=== PATIENT | female | born 1960 | race Two or more races ===

== ENCOUNTER 2016-07-19 17:24 | Inpatient (IN) | payer OTHER ==
[~2016-07-19] VITALS: Ht 167.6 cm; Wt 114.6 kg
[2016-07-19] MEDS ORDERED: ONDANSETRON HCL 4 MG/2 ML VIAL IV ONE (17:45)
[2016-07-19 18:14] LABS: Basophils # (auto) 0.1 uL; Basophils % (auto) 0.4 % (0.0-2.0); Eosinophils # (auto) 0.1 uL; Eosinophils % (auto) 0.4 % (0.0-7.0); Hematocrit 43.3 % (36.0-46.0); Hemoglobin 14.7 g/dL (12.2-16.2); Lymphocytes # (auto) 1.8 uL; Lymphocytes % (auto) 11.4 % (10.0-50.0); Mean Corpuscular Hemoglobin 29.5 pg (28.0-32.0); Mean Corpuscular Hgb Conc. 33.9 g/dL (32.0-36.0); Mean Corpuscular Volume 86.9 fL (80.0-100.0); Mean Platelet Volume 9.3 fL (7.4-10.4); Monocytes # (auto) 0.5 uL; Neutrophils # (auto) 13.4 uL; Neutrophils % (auto) 84.8 % (37.0-80.0); Platelet Count (auto) 244 10^3/uL (140-450); Red Cell Distribution Width 13.9 % (11.6-16.0); White Blood Cell 15.8 10^3/uL (4.4-10.8)
[2016-07-19 18:26] LABS: Albumin 3.3 g/dL (3.4-5.0); Alkaline Phosphatase 91 U/L (45-117); Anion Gap 14 (5-15); Aspartate Aminotransferase 19 U/L (15-37); BUN/Creatinine Ratio 12.9; Bilirubin, Total 0.3 mg/dL (0.2-1.0); Blood Urea Nitrogen 15 mg/dL (7-18); Calcium 8.8 mg/dL (8.5-10.1); Carbon Dioxide 24 mmol/L (21-32); Chloride 106 mmol/L (98-107); GFR African American 62 mL/min; GFR Non-African American 51 mL/min; Glucose 145 mg/dL (74-106); Magnesium 2.2 mg/dL (1.6-2.6); Potassium 3.8 mmol/L (3.5-5.1); Sodium 144 mmol/L (136-145); Total Protein 7.1 g/dL (6.4-8.2)
[2016-07-19] MEDS ORDERED: SODIUM CHLORIDE 0.9% 1,000 ML IV ONE ×2 (19:25→21:15)
[2016-07-19] MEDS ORDERED: PROCHLORPERAZINE EDISYLATE 5 MG/ML 2ML VIAL IV ONE (19:30)
[2016-07-19 19:47] LABS: Amylase 39 U/L (25-115)
[2016-07-19] MEDS ORDERED: LACTULOSE 20Gm/30ML SOLN PO PRN (21:15)
[2016-07-19] MEDS ORDERED: MORPHINE SULFATE 4 MG/ML SYRG IV PRN (21:15)
[2016-07-19] MEDS ORDERED: PROCHLORPERAZINE EDISYLATE 5 MG/ML 2ML VIAL IV PRN (21:15)
[2016-07-19] MEDS ORDERED: LEVOFLOXACIN 500MG 100 ML IV ONE (21:15)
[2016-07-19] MEDS ORDERED: AMITRIPTYLINE HCL 25 MG TAB PO SCH (22:00)
[2016-07-19 23:00] VITALS: BP 140/67
[2016-07-19 23:30] VITALS: BP 140/67
[2016-07-20] MEDS ORDERED: FURO40TA PO (00:21)
[2016-07-20] MEDS ORDERED: LISI-646 PO (00:21)
[2016-07-20] MEDS ORDERED: CITA10SO4 PO (00:21)
[2016-07-20] MEDS ORDERED: ESTR1TAB36 PO (00:21)
[2016-07-20] MEDS ORDERED: NORT25CA PO (00:21)
[2016-07-20] MEDS ORDERED: ATEN-60 PO (00:21)
[2016-07-20 05:00] VITALS: BP 112/55
[2016-07-20 06:36] LABS: Basophils # (auto) 0 uL; Basophils % (auto) 0.3 % (0.0-2.0); Eosinophils # (auto) 0 uL; Eosinophils % (auto) 0.4 % (0.0-7.0); Hematocrit 36.4 % (36.0-46.0); Lymphocytes # (auto) 2.9 uL; Mean Corpuscular Volume 87.8 fL (80.0-100.0); Mean Platelet Volume 9.2 fL (7.4-10.4); Monocytes # (auto) 0.6 uL; Monocytes % (auto) 4.6 % (0.0-12.0); Neutrophils # (auto) 9.6 uL; Neutrophils % (auto) 72.7 % (37.0-80.0); Platelet Count (auto) 270 10^3/uL (140-450); Red Cell Distribution Width 14.3 % (11.6-16.0); White Blood Cell 13.2 10^3/uL (4.4-10.8)
[2016-07-20] MEDS ORDERED: ACETAMINOPHEN 325 MG TAB PO PRN (07:15)
[2016-07-20 07:18] LABS: Albumin 2.7 g/dL (3.4-5.0); BUN/Creatinine Ratio 12.5; Bilirubin, Total 0.3 mg/dL (0.2-1.0); Potassium 3.6 mmol/L (3.5-5.1); Total Protein 5.8 g/dL (6.4-8.2)
[2016-07-20 08:00] VITALS: BP 124/56
[2016-07-20 09:01] VITALS: BP 124/56
[2016-07-20] MEDS ORDERED: LISINOPRIL 20 MG TAB PO SCH (10:00)
[2016-07-20] MEDS ORDERED: ATENOLOL 25 MG TAB PO SCH (10:00)
[2016-07-20] MEDS ORDERED: CITALOPRAM HYDROBR 20 MG TAB PO SCH (10:00)
[2016-07-20] MEDS ORDERED: FUROSEMIDE 20 MG TAB PO SCH (10:00)
[2016-07-20] MEDS ORDERED: PANTOPRAZOLE SODIUM 40 MG/10 ML VIAL IV SCH (10:00)
[2016-07-20] MEDS ORDERED: ENOXAPARIN SOD 40 MG/0.4 ML SYRINGE SC SCH (10:00)
[2016-07-20 10:48] LABS: Urine Bilirubin Negative (Negative); Urine Blood Negative /uL (Negative); Urine Color Yellow (Yellow); Urine Glucose Normal (Normal); Urine Ketone Negative (Negative); Urine Mucus FEW (None Seen); Urine Nitrite Negative (Negative); Urine RBC <1 /hpf (0 - 4); Urine Squamous Epithelial Cell FEW /hpf (<5); Urine Urobilinogen Normal (Negative)
[2016-07-20] MEDS ORDERED: ASPirin 81 mg TAB PO ONE (12:30)
[2016-07-20 12:36] VITALS: BP 136/65
[2016-07-20] MEDS ORDERED: IBUPROFEN 400 MG TAB PO PRN (13:45)
[2016-07-20 15:50] VITALS: BP 136/65
[2016-07-20 16:34] VITALS: BP 133/66
[2016-07-20] MEDS ORDERED: LEVOFLOXACIN 500MG 100 ML IV SCH (21:00)
[2016-07-20] MEDS ORDERED: ATORVASTATIN 20 MG TAB PO SCH (22:00)
[2016-07-21] MEDS ORDERED: ASPirin 81 mg TAB PO SCH (10:00)
== END 2016-07-20 19:00 | disposition short-term general hospital (02) | DRG 102 ==
LOC: ER 17:29 → TELE 17:30 → TELE-WESTW 21:56
PROVIDERS: ADMIT Family Medicine; ATTEND Internal Medicine
DX: R51 Headache (principal); N17.0 Acute kidney failure with tubular necrosis; Z68.41 Body mass index [BMI] 40.0-44.9, adult; E86.0 Dehydration; D72.829 Elevated white blood cell count, unspecified; F32.9 Major depressive disorder, single episode, unspecified; I10 Essential (primary) hypertension; M79.7 Fibromyalgia; H53.9 Unspecified visual disturbance; M54.9 Dorsalgia, unspecified; Z80.1 Family history of malignant neoplasm of trachea, bronchus and lung; Z82.49 Family history of ischemic heart disease and other diseases of the circulatory system; Z83.3 Family history of diabetes mellitus; Z90.49 Acquired absence of other specified parts of digestive tract; Z90.710 Acquired absence of both cervix and uterus; Z98.49 Cataract extraction status, unspecified eye; Z88.5 Allergy status to narcotic agent; E66.9 Obesity, unspecified
CPT/HCPCS: 36415; 70450; 74176; 80053; 81001; 82150; 83690; 83735; 84484; 85025; 87086; 93005; 94761; 96361; 96365; 96375; C9113; J1956; J2405

== ENCOUNTER 2021-06-10 10:31 | Emergency (ER) | payer OTHER ==
[~2021-06-10] VITALS: Ht 170.2 cm; Wt 118.4 kg
[~2021-06-10 10:31] MED LIST: ATEN-60 PO; CITA10SO4 PO; ESTR1TAB6 PO; FURO1TAB31 PO; LISI20TA28 PO; NORT25CA PO
[2021-06-10 12:10] LABS: Basophils # (auto) 0.1 10 ^3/uL (0-0.2); Basophils % (auto) 1.2 % (0.0-2.0); Eosinophils # (auto) 0.1 10 ^3/uL (0-0.8); Eosinophils % (auto) 1.3 % (0.0-7.0); Hematocrit 42.9 % (36.0-46.0); Hemoglobin 14.2 g/dL (12.2-16.2); Lymphocytes # (auto) 1.3 10 ^3/uL (0.4-5.4); Lymphocytes % (auto) 19.6 % (10.0-50.0); Mean Corpuscular Hgb Conc. 33.1 g/dL (32.0-36.0); Mean Corpuscular Volume 87.5 fL (80.0-100.0); Monocytes # (auto) 0.6 10 ^3/uL (0-1.3); Monocytes % (auto) 8.8 % (0.0-12.0); Neutrophils # (auto) 4.4 10 ^3/uL (1.6-8.6); Neutrophils % (auto) 69.1 % (37.0-80.0); Nucleated Red Blood Cells % 0.1 %; Red Cell Distribution Width 14.5 % (11.8-14.3); White Blood Cell 6.4 10^3/uL (4.4-10.8)
[2021-06-10 12:18] VITALS: BP 153/71
[2021-06-10 12:26] LABS: Potassium 3.5 mmol/L (3.5-5.1)
[2021-06-10 12:37] LABS: Albumin 3.2 g/dL (3.4-5.0); BUN/Creatinine Ratio 11.5; Bilirubin, Total 0.3 mg/dL (0.2-1.0); CRP High Sensitivity 5.92 mg/dL (< 0.3)
[2021-06-10] MEDS ORDERED: AZIT1POW PO (15:21)
[2021-06-10] MEDS ORDERED: METH4PAK PO (15:21)
[2021-06-10] MEDS ORDERED: ZINC220C8 PO (15:21)
== END 2021-06-10 15:30 | disposition home or self-care (01) ==
LOC: ER 10:31
DX: R05.9 Cough, unspecified (principal); I10 Essential (primary) hypertension; Z90.89 Acquired absence of other organs; Z88.1 Allergy status to other antibiotic agents; Z88.2 Allergy status to sulfonamides; Z88.8 Allergy status to other drugs, medicaments and biological substances; Z20.822 Contact with and (suspected) exposure to COVID-19; Z88.0 Allergy status to penicillin
CPT/HCPCS: 36415; 71046; 80053; 82728; 85025; 85379; 86141; 87426; 93005

== ENCOUNTER → 2021-07-02 | Outpatient (CLI) | payer OTHER ==
[~2021-07-02] MED LIST changes: +AZIT1POW PO; +METH4PAK PO; +ZINC220C8 PO
== END | disposition home or self-care (01) ==
LOC: US 09:31
PROVIDERS: ATTEND Internal Medicine
DX: N63.41 Unspecified lump in right breast, subareolar (principal); N60.81 Other benign mammary dysplasias of right breast; Z87.891 Personal history of nicotine dependence; Z98.51 Tubal ligation status; Z90.710 Acquired absence of both cervix and uterus; Z98.891 History of uterine scar from previous surgery; Z82.49 Family history of ischemic heart disease and other diseases of the circulatory system; Z83.3 Family history of diabetes mellitus; Z80.1 Family history of malignant neoplasm of trachea, bronchus and lung
CPT/HCPCS: 19083; 76642; 76942

== ENCOUNTER 2022-03-24 16:33 | Emergency (ER) | payer OTHER ==
[~2022-03-24] VITALS: Ht 167.6 cm; Wt 119.9 kg
[2022-03-24 16:48] VITALS: BP 145/71
[2022-03-24] MEDS ORDERED: BACL10TA PO (20:07)
== END 2022-03-24 20:19 | disposition home or self-care (01) ==
LOC: ER 16:33
DX: S93.402A Sprain of unspecified ligament of left ankle, initial encounter (principal); S83.92XA Sprain of unspecified site of left knee, initial encounter; S09.90XA Unspecified injury of head, initial encounter; F07.81 Postconcussional syndrome; I10 Essential (primary) hypertension; E03.9 Hypothyroidism, unspecified; Z90.49 Acquired absence of other specified parts of digestive tract; Z90.710 Acquired absence of both cervix and uterus; Z79.2 Long term (current) use of antibiotics; Z79.899 Other long term (current) drug therapy; Z88.1 Allergy status to other antibiotic agents; Z88.8 Allergy status to other drugs, medicaments and biological substances; W01.0XXA Fall on same level from slipping, tripping and stumbling without subsequent striking against object, initial encounter; Y93.89 Activity, other specified; Y92.89 Other specified places as the place of occurrence of the external cause; Y99.8 Other external cause status
CPT/HCPCS: 70450; 73562; 73610

== ENCOUNTER → 2022-06-25 | Outpatient (CLI) | payer OTHER ==
[~2022-06-25] MED LIST changes: +BACL10TA PO
[2022-06-25 08:31] LABS: Basophils # (auto) 0.1 10 ^3/uL (0-0.2); Basophils % (auto) 1.1 % (0.0-2.0); Eosinophils # (auto) 0.2 10 ^3/uL (0-0.8); Eosinophils % (auto) 2.9 % (0.0-7.0); Hematocrit 45.2 % (36.0-46.0); Hemoglobin 14.9 g/dL (12.2-16.2); Lymphocytes # (auto) 2.8 10 ^3/uL (0.4-5.4); Lymphocytes % (auto) 33.9 % (10.0-50.0); Mean Corpuscular Hemoglobin 29.4 pg (28.0-32.0); Mean Corpuscular Hgb Conc. 32.9 g/dL (32.0-36.0); Mean Corpuscular Volume 89.3 fL (80.0-100.0); Monocytes # (auto) 0.5 10 ^3/uL (0-1.3); Monocytes % (auto) 6.3 % (0.0-12.0); Neutrophils # (auto) 4.6 10 ^3/uL (1.6-8.6); Neutrophils % (auto) 55.8 % (37.0-80.0); Nucleated Red Blood Cells % 0.1 %; Red Blood Cells 5.07 10^6/uL (4.0-5.20); Red Cell Distribution Width 14.3 % (11.8-14.3); White Blood Cell 8.2 10^3/uL (4.4-10.8)
[2022-06-25 09:13] LABS: Albumin 3.4 g/dL (3.4-5.0); Calcium 9.1 mg/dL (8.5-10.1); Potassium 4.1 mmol/L (3.5-5.1)
[2022-06-25 09:19] LABS: BUN/Creatinine Ratio 15.4; Bilirubin, Total 0.4 mg/dL (0.2-1.0); Total Protein 6.9 g/dL (6.4-8.2)
[2022-06-25 09:51] LABS: Free T3 2.79 pg/mL (2.3-4.2); Free T4 (Free Thyroxine) 1.18 ng/dL (0.89-1.76)
== END | disposition home or self-care (01) ==
LOC: LAB 07:55
PROVIDERS: ATTEND Internal Medicine
DX: Z12.11 Encounter for screening for malignant neoplasm of colon (principal); Z00.00 Encounter for general adult medical examination without abnormal findings; I10 Essential (primary) hypertension; M79.7 Fibromyalgia; F32.9 Major depressive disorder, single episode, unspecified
CPT/HCPCS: 36415; 80053; 80061; 82306; 84439; 84481; 85025; 86038

== ENCOUNTER → 2022-10-21 | Outpatient (CLI) | payer OTHER ==
[~2022-10-21] MED LIST changes: -LISI20TA28 PO; +LISI20TA56 PO
== END | disposition home or self-care (01) ==
LOC: LAB 10:23
PROVIDERS: ATTEND Student in an Organized Health Care Education/Training Program
DX: R53.83 Other fatigue (principal); M79.7 Fibromyalgia
CPT/HCPCS: 36415; 85652; 86038; 86431

== ENCOUNTER → 2024-04-03 | Outpatient (CLI) | payer OTHER ==
[2024-04-03 09:21] LABS: Basophils # (auto) 0.1 10 ^3/uL (0-0.2); Basophils % (auto) 1.2 % (0.0-2.0); Eosinophils # (auto) 0.3 10 ^3/uL (0-0.8); Eosinophils % (auto) 2.8 % (0.0-7.0); Hematocrit 47.7 % (36.0-46.0); Hemoglobin 15.8 g/dL (12.2-16.2); Lymphocytes # (auto) 2.3 10 ^3/uL (0.4-5.4); Lymphocytes % (auto) 23.6 % (10.0-50.0); Mean Corpuscular Hemoglobin 28.6 pg (28.0-32.0); Mean Corpuscular Volume 86.8 fL (80.0-100.0); Monocytes # (auto) 0.7 10 ^3/uL (0-1.3); Monocytes % (auto) 6.8 % (0.0-12.0); Neutrophils # (auto) 6.4 10 ^3/uL (1.6-8.6); Neutrophils % (auto) 65.6 % (37.0-80.0); Platelet Count (auto) 286 10^3/uL (140-450); White Blood Cell 9.8 10^3/uL (4.4-10.8)
[2024-04-03 09:46] LABS: Alanine Aminotransferase 21 U/L (7-40); Albumin 4.3 g/dL (3.2-4.8); Alkaline Phosphatase 92 U/L (46-116); Anion Gap 6 (5-15); Aspartate Aminotransferase 19 U/L (13-40); BUN/Creatinine Ratio 20.2 (10.0-20.0); Bilirubin, Total 0.4 mg/dL (0.2-1.0); Blood Urea Nitrogen 22 mg/dL (9-23); Carbon Dioxide 29 mmol/L (20-31); Chloride 104 mmol/L (98-107); Cholesterol 186 mg/dL (< 200); Glucose 108 mg/dL (74-106); HDL Cholesterol 48 mg/dL (40-59); LDL Cholesterol 118 mg/dL (< 100); Potassium 4.2 mmol/L (3.5-5.1); Sodium 139 mmol/L (136-145); Triglycerides 101 mg/dL (< 150)
== END | disposition home or self-care (01) ==
LOC: LAB 08:54
PROVIDERS: ATTEND Student in an Organized Health Care Education/Training Program
DX: Z12.11 Encounter for screening for malignant neoplasm of colon (principal); I10 Essential (primary) hypertension; F32.1 Major depressive disorder, single episode, moderate; M79.7 Fibromyalgia
CPT/HCPCS: 36415; 80053; 80061; 84439; 84443; 85025

== ENCOUNTER → 2024-10-17 | Outpatient (CLI) | payer OTHER ==
[2024-10-17 07:47] LABS: Basophils # (auto) 0.1 10 ^3/uL (0-0.2); Basophils % (auto) 1.1 % (0.0-2.0); Eosinophils # (auto) 0.3 10 ^3/uL (0-0.8); Eosinophils % (auto) 3.1 % (0.0-7.0); Hematocrit 45.2 % (36.0-46.0); Hemoglobin 15.1 g/dL (12.2-16.2); Lymphocytes # (auto) 3.1 10 ^3/uL (0.4-5.4); Lymphocytes % (auto) 31.8 % (10.0-50.0); Mean Corpuscular Hemoglobin 29.1 pg (28.0-32.0); Mean Corpuscular Hgb Conc. 33.3 g/dL (32.0-36.0); Mean Corpuscular Volume 87.5 fL (80.0-100.0); Monocytes # (auto) 0.6 10 ^3/uL (0-1.3); Monocytes % (auto) 6.2 % (0.0-12.0); Neutrophils # (auto) 5.6 10 ^3/uL (1.6-8.6); Neutrophils % (auto) 57.8 % (37.0-80.0); Nucleated Red Blood Cells % 0.1 %; Platelet Count (auto) 241 10^3/uL (140-450); Red Blood Cells 5.17 10^6/uL (4.0-5.20); Red Cell Distribution Width 15.1 % (11.8-14.3); White Blood Cell 9.7 10^3/uL (4.4-10.8)
[2024-10-17 07:55] LABS: Urine Bacteria FEW /hpf (None Seen); Urine Blood Negative /uL (Negative); Urine Clarity Turbid (Clear); Urine Color Yellow (Yellow); Urine Hyaline Cast FEW /lpf (0 - 2); Urine Mucus FEW (None Seen); Urine Protein, UAD TRACE (Negative); Urine Specific Gravity 1.032 (1.001-1.035); Urine Squamous Epithelial Cell MOD /hpf (<5); Urine Urobilinogen Normal (Negative); Urine WBC 49 /HPF (0-5); Urine pH 5.5 (5.0-9.0)
[2024-10-17 08:02] LABS: Alanine Aminotransferase 20 U/L (7-40); Albumin 4.3 g/dL (3.2-4.8); Alkaline Phosphatase 96 U/L (46-116); Anion Gap 8 (5-15); Aspartate Aminotransferase 20 U/L (13-40); BUN/Creatinine Ratio 20.7 (10.0-20.0); Blood Urea Nitrogen 23 mg/dL (9-23); Carbon Dioxide 30 mmol/L (20-31); Chloride 105 mmol/L (98-107); Cholesterol 187 mg/dL (< 200); Glucose 99 mg/dL (74-106); HDL Cholesterol 44 mg/dL (40-59); LDL Cholesterol 131 mg/dL (< 100); Potassium 4.1 mmol/L (3.5-5.1); Sodium 143 mmol/L (136-145); Total Protein 6.6 g/dL (5.7-8.2); Triglycerides 104 mg/dL (< 150)
[2024-10-17 08:03] LABS: Bilirubin, Total 0.3 mg/dL (0.2-1.0)
== END | disposition home or self-care (01) ==
LOC: LAB 07:07
PROVIDERS: ATTEND Internal Medicine
DX: I10 Essential (primary) hypertension (principal); E04.1 Nontoxic single thyroid nodule; R79.89 Other specified abnormal findings of blood chemistry; Z13.1 Encounter for screening for diabetes mellitus; Z00.01 Encounter for general adult medical examination with abnormal findings
CPT/HCPCS: 36415; 80053; 80061; 81001; 83036; 84439; 84443; 85025

== ENCOUNTER 2024-12-26 06:58 | Outpatient (CLI) | payer OTHER ==
[2024-12-26 07:55] LABS: Anion Gap 8 (5-15); Calcium 9.6 mg/dL (8.7-10.4); Carbon Dioxide 28 mmol/L (20-31); Chloride 103 mmol/L (98-107); Potassium 4.2 mmol/L (3.5-5.1); Sodium 139 mmol/L (136-145)
[2024-12-26 08:00] LABS: Glucose 105 mg/dL (74-106)
[2024-12-26 08:01] LABS: BUN/Creatinine Ratio 18.4 (10.0-20.0); Blood Urea Nitrogen 21 mg/dL (9-23); Triglycerides 116 mg/dL (< 150)
[2024-12-26 08:03] LABS: Cholesterol 194 mg/dL (< 200); HDL Cholesterol 50 mg/dL (40-59)
[2024-12-26 08:30] LABS: Urine Protein, UAD Negative (Negative)
[2024-12-26 08:47] LABS: Uric Acid 8.5 mg/dL (3.1-7.8)
== END 2024-12-26 17:00 | disposition home or self-care (01) ==
LOC: LAB 06:58
PROVIDERS: ATTEND Internal Medicine
DX: I12.0 Hypertensive chronic kidney disease with stage 5 chronic kidney disease or end stage renal disease (principal); N18.5 Chronic kidney disease, stage 5; E87.6 Hypokalemia; E78.2 Mixed hyperlipidemia
CPT/HCPCS: 36415; 80048; 80061; 81001; 84550

== ENCOUNTER 2025-01-31 13:58 | Emergency (ER) | payer OTHER ==
[~2025-01-31] VITALS: Ht 167.6 cm; Wt 114.4 kg
[2025-01-31] MEDS: methylPREDNISolone SOD SUCC 125 MG/2 ML VL IM ONE (14:48)
--- NOTE | 2025-01-31 14:55 | ED.PDOC ---
History of Present Illness HPI Comments A 64 YEAR OLD FEMALE PRESENTS TO THE ED WITH COMPLAINT OF RASH/ALLERGIC REACTION. PATIENT REPORTS ON GETTING A CT SCAN DONE LAST WEEK WITH CONTRAST AND STARTED TO NOTICE ON HAVING GENERALIZED RASH THROUGHOUT THE BODY. PATIENT NOTES THAT THE RASHES WARM AND HAS A BURNING SENSATION TO IT. PATIENT DENIES FEVER, CHILLS, SHORTNESS OF BREATH, CHEST PAIN, ABDOMINAL PAIN, NAUSEA, VOMITING, HEADACHE, OR OTHER COMPLAINTS. NO OTHER SYMPTOMS OR MODIFYING FACTORS AT THIS TIME. PATIENT IS ALERT, ORIENTED X 4, AND HAS STEADY GAIT. Chief Complaint: Rash Time Seen by MD: 15:00 Primary Care Provider: FLETCHER Reviewed Notes: Nurses Notes, Medications, Allergies Allergies: Coded Allergies: Codeine (Verified Allergy, Severe, 07/19/16) Ciprofloxacin (Verified Allergy, Unknown, 06/10/21) Dextromethorphan (Verified Allergy, Unknown, 06/10/21) Guaifenesin (Verified Allergy, Unknown, 06/10/21) Levofloxacin (Verified Allergy, Unknown, 07/20/16) Meloxicam (Verified Allergy, Unknown, 06/10/21) Nitrofurantoin (Verified Allergy, Unknown, 06/10/21) Prednisone (Verified Allergy, Unknown, 07/20/16) Uncoded Allergies: PENNICILLIN (Allergy, Unknown, 07/20/16) Home Meds Active Scripts Baclofen (Baclofen) 10 Mg Tab, 10 MG PO TID PRN, #30 TAB Prov:YULIANA KAPLAN 03/24/22 Zinc Sulfate (Zinc Sulfate) 220 Mg Cap, 220 MG PO DAILY for 10 Days, #10 MG Prov:EVARISTO VALENCIA MD 06/10/21 Azithromycin (Zithromax) 1 Gm Pow, 1 PACK PO ONCE, #1 PACK Prov:EVARISTO VALENCIA MD 06/10/21 Methylprednisolone (Medrol Dosepak) 4 Mg Marcelo, 4 MG PO UD, #21 TAB UAD Prov:EVARISTO VALENCIA MD 06/10/21 Reported Medications Estradiol (Estradiol) 1 Mg Tab, 1 MG PO DAILY, TAB 07/20/16 Atenolol (Atenolol) 25 Mg Tab, 1 TAB PO DAILY, #30 TAB 5 Refills 07/20/16 Citalopram Hydrobromide (Citalopram Hydrobromide) 10 Mg/5 Ml Maddison, 10 MG PO DAILY 2/27/17 Nortriptyline Hcl (PAMELOR CAPSULE) 25 Mg Cp, 2 CAP PO DAILY, #30 CAP 3 Refills 07/20/16 Furosemide (Lasix) 40 Mg Tab, 40 MG PO DAILY, TAB 07/20/16 Lisinopril (Lisinopril) 20 Mg Tab, 20 MG PO DAILY for 30 Days, MG 07/20/16 Information Source: Patient Mode of Arrival: Ambulatory Severity: Mild, Moderate Timing: Days Duration: Since onset, Days Prehospital treatment: None Medication Refill: For: Other (SKIN RASH POST CT CONTRAST) Past Medical History PAST MEDICAL HISTORY: HTN, Thyroid Surgical History: Appendectomy, Cholecystectomy, , Hysterectomy WINCHER History: No Pertinent WINCHER History Family History Family History: Reviewed,noncontributory to illness, Unknown Social History Smoker: Non-Smoker Alcohol: Denies ETOH Use Drugs: Denies Drug Use Lives In: Home Constitutional: denies: chills, diaphoresis, fatigue, fever, malaise, sweats, weakness, others EENTM: denies: blurred vision, double vision, ear bleeding, ear discharge, ear drainage, ear pain, ear ringing, eye pain, eye redness, hearing loss, mouth pain, mouth swelling, nasal discharge, nose bleeding, nose congestion, nose pain, photophobia, tearing, throat pain, throat swelling, voice changes, others Respiratory: denies: cough, hemoptysis, orthopnea, SOB at rest, shortness of breath, SOB with excertion, stridor, wheezing, others Cardiovascular: denies: chest pain, dizzy spells, diaphoresis, Dyspnea on exertion, edema, irregular heart beat, left arm pain, lightheadedness, palpitations, PND, syncope, others Gastrointestinal: denies: abdomen distended, abdominal pain, blood streaked bowels, constipated, diarrhea, dysphagia, difficulty swallowing, hematemesis, melena, nausea, poor appetite, poor fluid intake, rectal bleeding, rectal pain, vomiting, others Genitourinary: denies: abnormal vagina bleeding, burning, dyspareunia, dysuria, flank pain, frequency, hematuria, incontinence, pain, , vagina discharge, urgency, others Neurological: denies: dizziness, fainting, headache, left sided numbness, left sided weakness, numbness, paresthesia, pre-existing deficit, right sided numbness, right sided weakness, seizure, speech problems, tingling, tremors, weakness, others Musculoskeletal: denies: back pain, gout, joint pain, joint swelling, muscle pain, muscle stiffness, neck pain, others Integumetry: reports: lumps, rash; denies: bruises, change in color, change in hair/nails, dryness, laceration, lesions, wounds, others Allergic/Immunocompromised: reports: Hives, Itching; denies: Difficulty Healing, Frequent Infections, others Hematologic/Lymphatic: denies: anemia, blood clots, easy bleeding, easy bruising, swollen glands, others Endocrine: denies: excessive hunger, excessive sweating, excessive thirst, excessive urination, flushing, intolerance to cold, intolerance to heat, unexplained weight gain, unexplained weight loss, others Psychiatric: denies: anxiety, bipolar disorder, depression, hopeless, panic disorder, schizophrenia, sleepless, suicidal, others All Other Systems: Reviewed and Negative Physical Exam General Appearance: No Apparent Distress HEENT: Normal ENT Inspection, PERRL/EOMI, Pharynx Normal, TMs Normal Neck: Full Range of Motion, Non-Tender, Normal, Normal Inspection Respiratory: Chest Non-Tender, Lungs Clear, No Accessory Muscle Use, No Respiratory Distress, Normal Breath Sounds Cardiovascular: No Edema, No JVD, No Murmur, No Gallop, Normal Peripheral Pulses, Regular Rate/Rhythm Breast Exam: Deferred Gastrointestinal: No Organomegaly, Non Tender, No Pulsatile Mass, Normal Bowel Sounds, Soft Genitalia: Deferred Pelvic: Deferred Rectal: Deferred Extremities: No calf tenderness, Normal capillary refill, Normal inspection, Normal range of motion, Non-tender, No pedal edema Musculoskeletal : Apperance: Normal Neurologic: Alert, 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 ), Warm Peripheral Pulses: 2+ carotid (R), 2+ carotid (L) Lymphatic: No Adenopathy Was a procedure done? Was a procedure done?: No Differential Dx Considerations may include: ALLERGIC REACTION, HIVES, ALLERGIC CONTACT DERMATITIS X-Ray, Labs, Meds, VS Vital Signs Date Time Temp Pulse Resp B/P (MAP) Pulse Ox O2 Delivery O2 Flow Rate FiO2 01/31/25 14:03 97.0 90 16 154/97 95 97.0 Current Medications Medications (Trade) Dose Ordered Sig/Markus Route Start Time Stop Time Status Last Admin Epinephrine HCl 0.3 mg ONCE ONCE IM 01/31/25 14:30 01/31/25 14:31 DC 01/31/25 14:47 Methylprednisolone Sodium Succinate (Solu Medrol) 125 mg ONCE ONCE IM 01/31/25 14:30 01/31/25 14:31 DC 01/31/25 14:48 X-Ray, Labs, Meds, VS Comment EXTERNAL MEDICAL RECORDS REVIEWED: [NONE] INDEPENDENT HISTORIANS: [NONE] SOCIAL DETERMINANTS OF HEALTH: [NONE] LABS ORDERED: NONE REVIEWED AND INTERPRETED RESULTS: NONE IMAGING ORDERED: NONE TREATMENTS ORDERED: EPINEPHRINE0.3 MG M AND SOLUMEDROL 125MG IM PROCEDURES PERFORMED: NONE CRITICAL CARE TIME: NONE I HAVE DISCUSSED THE PATIENT WITH THE ATTENDING PHYSICIAN DR. FARMER AND HE AGREES WITH THE PATIENT'S PLAN OF CARE AND DISPOSITION. BASED ON HISTORY OF PRESENT ILLNESS, AND PHYSICAL EXAM, PATIENT WILL BE DISCHA RGED HOME. DISCUSSED PLAN FOR DISCHARGE HOME WITH RX [VISTARIL, TRIAMCINOLONE AND ZANTAC]. MEDICATION WARNINGS GIVEN. SHARED DECISION MAKING: DISCUSSED WITH PATIENT THAT THEIR WORKUP WAS NORMAL. PATIENT INSTRUCTED TO FOLLOW UP WITH PRIMARY CARE PROVIDER IN 1-2 DAYS FOR RE- EVALUATION OF SYMPTOMS. PATIENT VERBALIZES UNDERSTANDING TO RETURN TO ED FOR NEW OR WORSENING SYMPTOMS OR IF FOLLOW UP WITH PCP CANNOT BE OBTAINED. PATIENT FEELS COMFORTABLE GOING HOME AT THIS TIME. ALL QUESTIONS ADDRESSED AT TIME OF D ISCHARGE. Time of 1ST Reevaluation: 15:30 Reevaluation 1ST: Improved Patient Education/Counseling: Diagnosis, Treatment Family Education/Counseling: Diagnosis, Treatment, No Family Present Medical Screening: No EMC Exist At This Time SEPSIS Sepsis Screen Date sepsis recognized/suspect: Jan 31, 2025 Time Sepsis recognized/suspect: 1407 Recent Procedure: No On Antibiotic Therapy: No Respiratory Rate >20: No Heart Rate >90: No Temp<36 C (96.8 F) or >38.3 C: No SBP <90 or MAP <65 mmHG: No New Acute Mental Status Change: No Is the patient on CPAP, BIPAP,: No Vital Signs Date Time Temp Pulse Resp B/P (MAP) Pulse Ox O2 Delivery O2 Flow Rate FiO2 01/31/25 14:03 97.0 90 16 154/97 95 97.0 Medications Medications Dose Ordered Sig/Markus Route Start Time Stop Time Status Last Admin Dose Admin Epinephrine HCl 0.3 mg ONCE ONCE IM 01/31/25 14:30 01/31/25 14:31 DC 01/31/25 14:47 Methylprednisolone Sodium Succinate 125 mg ONCE ONCE IM 01/31/25 14:30 01/31/25 14:31 DC 01/31/25 14:48 Departure 1 Departure Time of Disposition: 15:02 Impression: Primary Impression: Allergic reaction Qualified Codes: T78.40XA - Allergy, unspecified, initial encounter Disposition: HOME / SELF CARE / HOMELESS Condition: Stable Additional Instructions: F/U PCP IN 2 DAYS RECHECK. IF CONDITION BECOME WORSE, RETURN TO ED HUSSEIN. e-Prescriptions Famotidine (PEPCID TABLET) 20 Mg Tb 1 TAB PO TID, #30 TAB Prov: RYLAN GARVEY 01/31/25 Triamcinolone Acetonide (Triamcinolone Acetonide) 0.025 % Cre 1 APPLIC TOP BID, #30 GRAMS Prov: RYLAN GARVEY 01/31/25 Hydroxyzine Hcl (Hydroxyzine Hcl) 50 Mg Tab 1 TAB PO TID, #30 TAB Prov: RYLAN GARVEY 01/31/25 Discharged With: Self Critical Care Note Critical Care Time?: No Stability Stability form required: No I personally scribed for RYLAN GARVEY ([email or web address]) on 01/31/25 at 14:55. Electronically submitted by Lorenzo Kramer ([email or web address]). RYLAN GARVEY Jan 31, 2025 14:55
[2025-01-31 15:04] VITALS: BP 160/74; PULSE 92; RESP 19; TEMP 98.1; O2SAT 94
[2025-01-31] MEDS ORDERED: HYDR50TA69 PO (15:11)
[2025-01-31] MEDS ORDERED: TRIA0.02 TOP (15:11)
[2025-01-31] MEDS ORDERED: FAMO20TA10 PO (15:11)
== END 2025-01-31 15:16 | disposition home or self-care (01) ==
LOC: ER 13:58
DX: T78.40XA Allergy, unspecified, initial encounter (principal); I10 Essential (primary) hypertension; Z79.899 Other long term (current) drug therapy; Z79.818 Long term (current) use of other agents affecting estrogen receptors and estrogen levels; Z88.1 Allergy status to other antibiotic agents; Z88.5 Allergy status to narcotic agent; Z88.8 Allergy status to other drugs, medicaments and biological substances; Z90.49 Acquired absence of other specified parts of digestive tract; Z90.710 Acquired absence of both cervix and uterus; X58.XXXA Exposure to other specified factors, initial encounter
CPT/HCPCS: 96372; 99284; J0169; J2919

== ENCOUNTER 2025-02-02 09:22 | Inpatient (IN) | payer OTHER ==
[~2025-02-02] VITALS: Ht 165.1 cm; Wt 117.5 kg
[~2025-02-02 09:22] MED LIST changes: +FAMO20TA10 PO; +HYDR50TA69 PO; +TRIA0.02 TOP
[2025-02-02 10:10] VITALS: PULSE 63; RESP 18; O2SAT 93
--- NOTE | 2025-02-02 10:30 | ED.PDOC ---
HPI Allergic reaction HPI Comments 64 y.o female presents to the ED for an evaluation of a rash associated with SOB, wheezing and throat tightness. Patient reports developing a reaction to IV contrast one week ago for a CT image and states 2 days ago was treated for the rash via IM medication. Patient mentions today she woke up with the rash became generalized on all extremities and developed SOB with wheezing. She denies any difficulty swallowing, nausea, vomiting, chest pain. Chief Complaint: Allergic Reaction Time Seen by MD: 10:20 Primary Care Provider: FLETCHER Reviewed Notes: Nurses Notes, Medications, Allergies Allergies: Coded Allergies: Codeine (Verified Allergy, Severe, 07/19/16) Ciprofloxacin (Verified Allergy, Unknown, 06/10/21) Dextromethorphan (Verified Allergy, Unknown, 06/10/21) Guaifenesin (Verified Allergy, Unknown, 06/10/21) Levofloxacin (Verified Allergy, Unknown, 07/20/16) Meloxicam (Verified Allergy, Unknown, 06/10/21) Nitrofurantoin (Verified Allergy, Unknown, 06/10/21) Prednisone (Verified Allergy, Unknown, 07/20/16) Uncoded Allergies: PENNICILLIN (Allergy, Unknown, 07/20/16) Home Meds Active Scripts Famotidine (PEPCID TABLET) 20 Mg Tb, 1 TAB PO TID, #30 TAB Prov:RYLAN GARVEY 01/31/25 Triamcinolone Acetonide (Triamcinolone Acetonide) 0.025 % Cre, 1 APPLIC TOP BID, #30 GRAMS Prov:RYLAN GARVEY 01/31/25 Hydroxyzine Hcl (Hydroxyzine Hcl) 50 Mg Tab, 1 TAB PO TID, #30 TAB Prov:RYLAN GARVEY 01/31/25 Baclofen (Baclofen) 10 Mg Tab, 10 MG PO TID PRN, #30 TAB Prov:YULIANA KAPLAN 03/24/22 Zinc Sulfate (Zinc Sulfate) 220 Mg Cap, 220 MG PO DAILY for 10 Days, #10 MG Prov:EVARISTO VALENCIA MD 06/10/21 Azithromycin (Zithromax) 1 Gm Pow, 1 PACK PO ONCE, #1 PACK Prov:EVARISTO VALENCIA MD 06/10/21 Methylprednisolone (Medrol Dosepak) 4 Mg Marcelo, 4 MG PO UD, #21 TAB UAD Prov:EVARISTO VALENCIA MD 06/10/21 Reported Medications Estradiol (Estradiol) 1 Mg Tab, 1 MG PO DAILY, TAB 07/20/16 Atenolol (Atenolol) 25 Mg Tab, 1 TAB PO DAILY, #30 TAB 5 Refills 07/20/16 Citalopram Hydrobromide (Citalopram Hydrobromide) 10 Mg/5 Ml Maddison, 10 MG PO DAILY 07/20/16 Nortriptyline Hcl (PAMELOR CAPSULE) 25 Mg Cp, 2 CAP PO DAILY, #30 CAP 3 Refills 07/20/16 Furosemide (Lasix) 40 Mg Tab, 40 MG PO DAILY, TAB 07/20/16 Lisinopril (Lisinopril) 20 Mg Tab, 20 MG PO DAILY for 30 Days, MG 07/20/16 Information Source: Patient Mode of Arrival: Ambulatory Severity: Moderate Rash: Moderate SOB: Moderate Timing: Weeks (1) Duration: Since onset Location: Generalized Developed: Rash, Shortness of Breath, Throat Swelliing History of: None Past Medical History PAST MEDICAL HISTORY: HTN, Thyroid Surgical History: Appendectomy, Cholecystectomy, , Hysterectomy PROFESSIONAL TUTOR History: No Pertinent PROFESSIONAL TUTOR History Family History Family History: Reviewed,noncontributory to illness, Unknown Social History Smoker: Non-Smoker Alcohol: Denies ETOH Use Drugs: Denies Drug Use Lives In: Home Constitutional: denies: chills, diaphoresis, fatigue, fever, malaise, sweats, weakness, others EENTM: denies: blurred vision, double vision, ear bleeding, ear discharge, ear drainage, ear pain, ear ringing, eye pain, eye redness, hearing loss, mouth pain, mouth swelling, nasal discharge, nose bleeding, nose congestion, nose pain, photophobia, tearing, throat pain, throat swelling, voice changes, others Respiratory: reports: shortness of breath, wheezing; denies: cough, hemoptysis, orthopnea, SOB at rest, SOB with excertion, stridor, others Cardiovascular: denies: chest pain, dizzy spells, diaphoresis, Dyspnea on exertion, edema, irregular heart beat, left arm pain, lightheadedness, palpitations, PND, syncope, others Gastrointestinal: denies: abdomen distended, abdominal pain, blood streaked bowels, constipated, diarrhea, dysphagia, difficulty swallowing, hematemesis, melena, nausea, poor appetite, poor fluid intake, rectal bleeding, rectal pain, vomiting, others Genitourinary: denies: abnormal vagina bleeding, burning, dyspareunia, dysuria, flank pain, frequency, hematuria, incontinence, pain, , vagina d ischarge, urgency, others Neurological: denies: dizziness, fainting, headache, left sided numbness, left sided weakness, numbness, paresthesia, pre-existing deficit, right sided numbness, right sided weakness, seizure, speech problems, tingling, tremors, weakness, others Musculoskeletal: denies: back pain, gout, joint pain, joint swelling, muscle pain, muscle stiffness, neck pain, others Integumetry: denies: bruises, change in color, change in hair/nails, dryness, laceration, lesions, lumps, rash, wounds, others Allergic/Immunocompromised: reports: Hives; denies: Difficulty Healing, Frequent Infections, Itching, others Hematologic/Lymphatic: denies: anemia, blood clots, easy bleeding, easy bruising, swollen glands, others Endocrine: denies: excessive hunger, excessive sweating, excessive thirst, excessive urination, flushing, intolerance to cold, intolerance to heat, unexplained weight gain, unexplained weight loss, others Psychiatric: denies: anxiety, bipolar disorder, depression, hopeless, panic disorder, schizophrenia, sleepless, suicidal, others All Other Systems: Reviewed and Negative Physical Exam General Appearance: Moderate Distress HEENT: Normal ENT Inspection, Pharynx Normal, TMs Normal Neck: Full Range of Motion, Non-Tender, Normal, Normal Inspection Respiratory: Respiratory Distress, Wheezing Cardiovascular: No Edema, No JVD, No Murmur, No Gallop, Normal Peripheral Pulses, Regular Rate/Rhythm Breast Exam: Deferred Gastrointestinal: No Organomegaly, Non Tender, No Pulsatile Mass, Normal Bowel Sounds, Soft Genitalia: Deferred Pelvic: Deferred Rectal: Deferred Extremities: No calf tenderness, Normal capillary refill, Normal inspection, Normal range of motion, Non-tender, No pedal edema Musculoskeletal : Apperance: Normal Neurologic: Alert, 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 Was a procedure done?: No Differential diagnosis (all) Differential Diagnosis: Angioedema, Contact Dermatitis, Drug Reaction, Urticaria X-Ray, Labs, Meds, VS Vital Signs Date Time Temp Pulse Resp B/P (MAP) Pulse Ox O2 Delivery O2 Flow Rate FiO2 02/02/25 12:00 65 18 132/52 (78) 91 02/02/25 10:10 63 18 93 Nasal Cannula* 2 28 02/02/25 10:08 97.9 64 15 140/65 (90) 91 97.9 02/02/25 09:25 97.3 72 16 137/50 93 97.3 Lab Test 02/02/25 11:39 02/02/25 10:42 02/02/25 10:21 Range/Units POC Glucose 86 70-106 mg/dl White Blood Count 17.0 H 4.4-10.8 10^3/uL Red Blood Count 5.21 H 4.0-5.20 10^6/uL Hemoglobin 15.2 12.2-16.2 g/dL Hematocrit 45.7 36.0-46.0 % Mean Corpuscular Volume 87.7 80.0-100.0 fL Mean Corpuscular Hemoglobin 29.2 28.0-32.0 pg Mean Corpuscular Hemoglobin Concent 33.3 32.0-36.0 g/dL Red Cell Distribution Width 15.9 H 11.8-14.3 % Platelet Count 264 140-450 10^3/uL Mean Platelet Volume 9.0 6.9-10.8 fL Neutrophils (%) (Auto) 67.2 37.0-80.0 % Lymphocytes (%) (Auto) 24.1 10.0-50.0 % Monocytes (%) (Auto) 6.0 0.0-12.0 % Eosinophils (%) (Auto) 1.8 0.0-7.0 % Basophils (%) (Auto) 0.9 0.0-2.0 % Neutrophils # (Auto) 11.4 H 1.6-8.6 10 ^3/uL Lymphocytes # (Auto) 4.1 0.4-5.4 10 ^3/uL Monocytes # (Auto) 1.0 0-1.3 10 ^3/uL Eosinophils # (Auto) 0.3 0-0.8 10 ^3/uL Basophils # (Auto) 0.2 0-0.2 10 ^3/uL Nucleated Red Blood Cells 0.0 % Sodium Level 142 136-145 mmol/L Potassium Level 3.7 3.5-5.1 mmol/L Chloride Level 102 98-107 mmol/L Carbon Dioxide Level 29 20-31 mmol/L Anion Gap 11 5-15 Blood Urea Nitrogen 18 9-23 mg/dL Creatinine 1.29 H 0.550-1.02 mg/dL Glomerular Filtration Rate Calc 46 >90 mL/min BUN/Creatinine Ratio 14.0 10.0-20.0 Serum Glucose 82 74-106 mg/dL Calcium Level 9.4 8.7-10.4 mg/dL B-Type Natriuretic Peptide 77.75 0-100 pg/mL Urine Color Colorless Yellow Urine Clarity Clear Clear Urine pH 7.0 5.0-9.0 Urine Specific Clemons 1.005 1.001-1.035 Urine Protein Negative Negative Urine Ketones Negative Negative Urine Blood Negative Negative /uL Urine Nitrite Negative Negative Urine Bilirubin Negative Negative Urine Urobilinogen Normal Negative mg/dL Urine Leukocyte Esterase Negative Negative /uL Urine RBC <1 0 - 4 /hpf Urine Microscopic WBC 1 0-5 /HPF Urine Squamous Epithelial Cells Few <5 /hpf Urine Bacteria None seen None Seen /hpf Urine Glucose Normal Normal mg/dL Current Medications Medications (Trade) Dose Ordered Sig/Markus Route Start Time Stop Time Status Last Admin Methylprednisolone Sodium Succinate (Solu Medrol) 125 mg ONCE ONCE IV 02/02/25 10:30 02/02/25 10:31 DC 02/02/25 11:03 Epinephrine HCl 0.3 mg ONCE ONCE SC 02/02/25 10:30 02/02/25 10:31 DC 02/02/25 11:03 Diphenhydramine HCl (Benadryl Injection) 50 mg ONCE ONCE IV 02/02/25 10:30 02/02/25 10:31 DC 02/02/25 11:02 Patient alert. Complaining of shortness a breath. Difficult to complete sentences without being short of breath. Placed on oxygen. WBC elevated. Hemoglobin within normal limits. Was given steroid Was given epinephrine. Was given Benadryl. Explained to the patient. Continue monitoring. Time of 1ST Reevaluation: 10:25 Reevaluation 1ST: Unchanged Patient Education/Counseling: Diagnosis, Treatment, Prognosis Family Education/Counseling: No Family Present SEPSIS Sepsis Screen Date sepsis recognized/suspect: Feb 02, 2025 Time Sepsis recognized/suspect: 924 Recent Procedure: No On Antibiotic Therapy: No Respiratory Rate >20: No Heart Rate >90: No Temp<36 C (96.8 F) or >38.3 C: No SBP <90 or MAP <65 mmHG: No New Acute Mental Status Change: No Is the patient on CPAP, BIPAP,: No Physician Orders Chest Portable (02/02/25 10:28) Vital Signs Date Time Temp Pulse Resp B/P (MAP) Pulse Ox O2 Delivery O2 Flow Rate FiO2 02/02/25 12:00 65 18 132/52 (78) 91 02/02/25 10:10 63 18 93 Nasal Cannula* 2 28 02/02/25 10:08 97.9 64 15 140/65 (90) 91 97.9 02/02/25 09:25 97.3 72 16 137/50 93 97.3 Laboratory Tests Test 02/02/25 10:42 White Blood Count 17.0 10^3/uL (4.4-10.8) H Medications Medications Dose Ordered Sig/Markus Route Start Time Stop Time Status Last Admin Dose Admin Diphenhydramine HCl 50 mg ONCE ONCE IV 02/02/25 10:30 02/02/25 10:31 DC 02/02/25 11:02 Epinephrine HCl 0.3 mg ONCE ONCE SC 02/02/25 10:30 02/02/25 10:31 DC 02/02/25 11:03 Methylprednisolone Sodium Succinate 125 mg ONCE ONCE IV 02/02/25 10:30 02/02/25 10:31 DC 02/02/25 11:03 Departure 1 Departure Time of Disposition: 13:17 Impression: Primary Impression: Acute respiratory distress Additional Impression: Allergic reaction Qualified Codes: T78.40XA - Allergy, unspecified, initial encounter Disposition: ADMITTED INPATIENT Admit to: Med Surg Condition: Guarded Critical Care Note Critical Care Time?: Yes (90 min-critical care time only) Stability Stability form required: No I personally scribed for LILY RILEY MD ([email or web address]) on 02/02/25 at 10:30. Electronically submitted by Shavon Ackerman ([facility]). LILY RILEY MD Feb 02, 2025 10:30
[2025-02-02 10:58] LABS: Urine Protein, UAD Negative (Negative)
[2025-02-02 11:02] LABS: Hematocrit 45.7 % (36.0-46.0); Hemoglobin 15.2 g/dL (12.2-16.2); Mean Corpuscular Hemoglobin 29.2 pg (28.0-32.0); Mean Corpuscular Volume 87.7 fL (80.0-100.0); Nucleated Red Blood Cells % 0.0 %
[2025-02-02] MEDS: diphenhdrAMINE HCL 50 MG/1 ML VL IV ONE ×2 (11:02→14:48)
[2025-02-02] MEDS: methylPREDNISolone SOD SUCC 125 MG/2 ML VL IV ONE (11:03)
[2025-02-02 11:06] LABS: Chloride 102 mmol/L (98-107); Potassium 3.7 mmol/L (3.5-5.1); Sodium 142 mmol/L (136-145)
[2025-02-02 11:07] LABS: Carbon Dioxide 29 mmol/L (20-31)
[2025-02-02 11:08] LABS: Calcium 9.4 mg/dL (8.7-10.4)
[2025-02-02 11:13] LABS: Anion Gap 11 (5-15); BUN/Creatinine Ratio 14.0 (10.0-20.0); Blood Urea Nitrogen 18 mg/dL (9-23); Glucose 82 mg/dL (74-106)
--- NOTE | 2025-02-02 11:14 | DVH ---
XY CHEST PORTABLE, HISTORY: sob COMPARISON: XY CHEST TWO VIEWS ROUTINE on DOS: 07/12/23, CT CHEST WITHOUT CONTRAST on DOS: 12/04/22, CH EST TWO VIEWS ROUTINE on DOS: 06/10/21 XY CHEST TWO VIEWS ROUTINE on DOS: 07/12/23, CT CHEST WITHOUT CONTRAST on DOS: 12/04/22, CHEST TWO VIEW S ROUTINE on DOS: 06/10/21 TECHNICAL DATA: 1 view of the chest was obtained. FINDINGS: Lines and tubes: None Cardiomediastinal silhouette: normal Pulmonary vasculature: normal Lung expansion: normal Lung airspace: normal Lung interstitium: normal Pleura: normal Pneumothorax: no Bones: Unremarkable Other: no IMPRESSION: No acute intrathoracic abnormality.
--- NOTE | 2025-02-02 13:55 | DVHHP2 ---
History of Present Illness Reason for Visit: Body rash and shortness of the breath History of Present Illness 64-year-old female past medical history hypertension fibromyalgia thyroid nodules surgical history appendectomy gallbladder surgery hysterectomy chief complaint patient states that she had a CT scan last week she developed a light rash after that she was taking Benadryl at home but it did not improve her symptoms. Patient states that she woke up this morning with facial swelling is worsening rash and itchiness all over her body. Patient states on the day of the CT scan she did have infiltration over IV on her left arm that is did swell up. I she currently denies any chest pain no shortness with the breath but she does state she is feels itchy but it has improved since she was receiving Benadryl epinephrine Solu-Medrol while in the ED when evaluating patient's labs and imaging white count was found to be 17.0 otherwise CBC was unremarkable creatinine was 1.29 otherwise BNP was unremarkable BNP was 77.75. Chest x-ray was unremarkable UA was unremarkable with these findings we will admit patient for acute allergic reaction Past Medical History See HPI above Past Surgical History See HPI above Family History Reviewed, non-contributory to the management of this case. Past Social History The patient lives at home, denies smoking, alcohol or illicit drugs abuse. Review of Systems Constitutional: No: Fever, Chills, Sweats, Weakness, Malaise, Other Eyes: No: Pain, Vision change, Conjunctivae inflammation, Eyelid inflammation, Other, Redness ENT: No: Ear pain, Ear discharge, Nose pain, Nose discharge, Nose congestion, Mouth pain, Mouth swelling, Throat pain, Throat swelling, Other Respiratory: Shortness of breath, SOB with excertion; No: Cough, Dry, Wheezing, Hemoptysis, Pleuritic Pain, Sputum, Wheezing, Other Cardiovascular: No: Chest Pain, Palpitations, Orthopnea, Paroxysmal Noc. Dyspnea, Edema, Lt Headedness, Other Gastrointestinal: No: Nausea, Vomiting, Abdominal Pain, Diarrhea, Constipation, Melena, Hematochezia, Other Genitourinary: No Dysuria, No Frequency, No Incontinence, No Hematuria, No Retention, No Other Musculoskeletal: No: other, neck pain, shoulder pain, arm pain, back pain, hand pain, leg pain, foot pain Skin: Rash; No: Lesions, Jaundice, Bruising, Other Neurological: No: Weakness, Numbness, Incoordination, Change in speech, Confusion, Seizures, Other Allergies: Coded Allergies: Codeine (Verified Allergy, Severe, 07/19/16) Ciprofloxacin (Verified Allergy, Unknown, 06/10/21) Dextromethorphan (Verified Allergy, Unknown, 06/10/21) Guaifenesin (Verified Allergy, Unknown, 06/10/21) Levofloxacin (Verified Allergy, Unknown, 07/20/16) Meloxicam (Verified Allergy, Unknown, 06/10/21) Nitrofurantoin (Verified Allergy, Unknown, 06/10/21) Prednisone (Verified Allergy, Unknown, 07/20/16) Uncoded Allergies: PENNICILLIN (Allergy, Unknown, 07/20/16) Exam Vital Signs Vital Signs Date Time Temp Pulse Resp B/P (MAP) Pulse Ox O2 Delivery O2 Flow Rate FiO2 02/02/25 10:10 63 18 93 Nasal Cannula* 2 28 02/02/25 10:08 97.9 140/65 (90) 97.9 General Appearance: Alert, Oriented X3, Cooperative, No acute distress HEENT: Atraumatic, PERRLA, EOMI, Mucous membr. moist/pink Respiratory: Clear to auscultation, Normal air movement Cardiovascular: Regular rate, Normal S1, Normal S2, No murmurs Abdominal: Normal bowel sounds, Soft, No tenderness, No hepatospenomegaly, No masses Extremities: No clubbing, No cyanosis, No edema, Normal pulses, No tenderness/swelling Skin: No breakdown (Rash seen to face neck chest arms abdomen and upper thighs no drainage noted no heat) Neuro: Normal speech, Strength at 5/5 X4 ext, Normal tone, Sensation intact, Cranial nerves 3-12 NL, Other (Neuro nonfocal) Psych/Mental Status: Mental status NL, Mood NL Labs/Xrays I reviewed labs, imaging CT scan abdomen pelvis, EKG and all diagnostic studies on this patient from ED records and the medical chart Labs Test 02/02/25 11:39 02/02/25 10:42 02/02/25 10:21 Range/Units POC Glucose 86 70-106 mg/dl White Blood Count 17.0 H 4.4-10.8 10^3/uL Red Blood Count 5.21 H 4.0-5.20 10^6/uL Hemoglobin 15.2 12.2-16.2 g/dL Hematocrit 45.7 36.0-46.0 % Mean Corpuscular Volume 87.7 80.0-100.0 fL Mean Corpuscular Hemoglobin 29.2 28.0-32.0 pg Mean Corpuscular Hemoglobin Concent 33.3 32.0-36.0 g/dL Red Cell Distribution Width 15.9 H 11.8-14.3 % Platelet Count 264 140-450 10^3/uL Mean Platelet Volume 9.0 6.9-10.8 fL Neutrophils (%) (Auto) 67.2 37.0-80.0 % Lymphocytes (%) (Auto) 24.1 10.0-50.0 % Monocytes (%) (Auto) 6.0 0.0-12.0 % Eosinophils (%) (Auto) 1.8 0.0-7.0 % Basophils (%) (Auto) 0.9 0.0-2.0 % Neutrophils # (Auto) 11.4 H 1.6-8.6 10 ^3/uL Lymphocytes # (Auto) 4.1 0.4-5.4 10 ^3/uL Monocytes # (Auto) 1.0 0-1.3 10 ^3/uL Eosinophils # (Auto) 0.3 0-0.8 10 ^3/uL Basophils # (Auto) 0.2 0-0.2 10 ^3/uL Nucleated Red Blood Cells 0.0 % Sodium Level 142 136-145 mmol/L Potassium Level 3.7 3.5-5.1 mmol/L Chloride Level 102 98-107 mmol/L Carbon Dioxide Level 29 20-31 mmol/L Anion Gap 11 5-15 Blood Urea Nitrogen 18 9-23 mg/dL Creatinine 1.29 H 0.550-1.02 mg/dL Glomerular Filtration Rate Calc 46 >90 mL/min BUN/Creatinine Ratio 14.0 10.0-20.0 Serum Glucose 82 74-106 mg/dL Calcium Level 9.4 8.7-10.4 mg/dL B-Type Natriuretic Peptide 77.75 0-100 pg/mL Urine Color Colorless Yellow Urine Clarity Clear Clear Urine pH 7.0 5.0-9.0 Urine Specific [place] 1.005 1.001-1.035 Urine Protein Negative Negative Urine Ketones Negative Negative Urine Blood Negative Negative /uL Urine Nitrite Negative Negative Urine Bilirubin Negative Negative Urine Urobilinogen Normal Negative mg/dL Urine Leukocyte Esterase Negative Negative /uL Urine RBC <1 0 - 4 /hpf Urine Microscopic WBC 1 0-5 /HPF Urine Squamous Epithelial Cells Few <5 /hpf Urine Bacteria None seen None Seen /hpf Urine Glucose Normal Normal mg/dL SEPSIS Sepsis Screen Date sepsis recognized/suspect: Feb 02, 2025 Time Sepsis recognized/suspect: 924 Recent Procedure: No On Antibiotic Therapy: No Respiratory Rate >20: No Heart Rate >90: No Temp<36 C (96.8 F) or >38.3 C: No SBP <90 or MAP <65 mmHG: No New Acute Mental Status Change: No Is the patient on CPAP, BIPAP,: No Physician Orders Chest Portable (02/02/25 10:28) Vital Signs Date Time Temp Pulse Resp B/P (MAP) Pulse Ox O2 Delivery O2 Flow Rate FiO2 02/02/25 10:10 63 18 93 Nasal Cannula* 2 28 02/02/25 10:08 97.9 64 15 140/65 (90) 91 97.9 02/02/25 09:25 97.3 72 16 137/50 93 97.3 Laboratory Tests Test 02/02/25 10:42 White Blood Count 17.0 10^3/uL (4.4-10.8) H Medications Medications Dose Ordered Sig/Markus Route Start Time Stop Time Status Last Admin Dose Admin Diphenhydramine HCl 50 mg ONCE ONCE IV 02/02/25 10:30 02/02/25 10:31 DC 02/02/25 11:02 50 MG Epinephrine HCl 0.3 mg ONCE ONCE SC 02/02/25 10:30 02/02/25 10:31 DC 02/02/25 11:03 0.3 MG Methylprednisolone Sodium Succinate 125 mg ONCE ONCE IV 02/02/25 10:30 02/02/25 10:31 DC 02/02/25 11:03 125 MG Assessment/Plan Assessment/Plan acute allergic reaction likely to ivp dye ordered benadryl ordered ivf ordered solumedrol atc can consider epi im can repeat dose acute leukocytosis likely acute phase reactant monitor for fever if with fever consider infectious workup acute elevation in crea magdalena ordered ivf for now chronic problems htn hypotension fen/ppx diet ivf protonix scd plan admit to medicine tele Plan discussed with: Patient Date of Service: Feb 02, 2025 Billing Provider: EDUARD ROE DNP Common Visit Codes: [id number] INP/OBS CARE (HIGH) EDUARD ROE DNP Feb 02, 2025 13:55
[2025-02-02] MEDS ORDERED: DOCUSATE SOD 100 MG CAP PO PRN (14:00)
[2025-02-02] MEDS ORDERED: NITROGLYCERIN 0.4 MG SL TAB SL PRN (14:00)
[2025-02-02] MEDS: PANTOPRAZOLE 40 MG/10 ML VIAL INJ IV ONE (14:48)
[2025-02-02] MEDS: SODIUM CHLORIDE 0.9% 1,000 ML IV SCH (14:52)
[2025-02-02] MEDS: methylPREDNISolone SOD SUCC 40 MG/ML VL IV SCH (15:14)
[2025-02-02] MEDS: diphenhdrAMINE HCL 50 MG/1 ML VL IV PRN (20:06)
[2025-02-02 21:50] VITALS: BP 143/69; PULSE 65; RESP 19; TEMP 98.1; O2SAT 95
[2025-02-02 22:05] VITALS: BP 143/69; PULSE 65; RESP 19; TEMP 98.1; O2SAT 95
[2025-02-03] VITALS (8 sets, daily range): BP systolic 106–160; BP diastolic 50–86; PULSE 59–73; RESP 16–20; TEMP 97.9–98.9; O2SAT 93–97
[2025-02-03 08:19] LABS: Hematocrit 43.0 % (36.0-46.0); Hemoglobin 14.6 g/dL (12.2-16.2); Mean Corpuscular Hemoglobin 29.7 pg (28.0-32.0); Mean Corpuscular Volume 87.7 fL (80.0-100.0); Nucleated Red Blood Cells % 0.0 %
[2025-02-03 08:30] LABS: Alanine Aminotransferase 38 U/L (7-40); Albumin 4.2 g/dL (3.2-4.8); Alkaline Phosphatase 99 U/L (46-116); Anion Gap 9 (5-15); BUN/Creatinine Ratio 16.2 (10.0-20.0); Blood Urea Nitrogen 19 mg/dL (9-23); Calcium 9.5 mg/dL (8.7-10.4); Carbon Dioxide 26 mmol/L (20-31); Chloride 107 mmol/L (98-107); Potassium 4.1 mmol/L (3.5-5.1); Sodium 142 mmol/L (136-145); Total Protein 6.5 g/dL (5.7-8.2)
[2025-02-03 08:38] LABS: Bilirubin, Total 0.2 mg/dL (0.2-1.0); Glucose 148 mg/dL (74-106)
[2025-02-03] MEDS: PANTOPRAZOLE 40 MG/10 ML VIAL INJ IV SCH (09:48)
[2025-02-03] MEDS: ATENOLOL 25 MG TAB PO SCH (09:49)
[2025-02-03] MEDS: NORTRIPTYLINE HCL 25 MG CAP PO SCH (09:49)
[2025-02-03] MEDS: ESTRADIOL 1 MG TAB PO SCH (10:00)
--- NOTE | 2025-02-03 12:54 | DVHPN2 ---
Reviewed: Care Plan, H&P, Labs, Medications, Previous Orders, Radiology Changes from previous H/P or p: No Changes Eyes: No Pain, No Vision change, No Conjunctivae inflammation, No Eyelid inflammation, No Other, No Redness ENT: No Ear pain, No Ear discharge, No Nose pain, No Nose discharge, No Nose congestion, No Mouth pain, No Mouth swelling, No Throat pain, No Throat swelling, No Other Cardiovascular: No Chest Pain, No Palpitations, No Orthopnea, No Paroxysmal Noc. Dyspnea, No Edema, No Lt Headedness, No Other Respiratory: No Cough, No Dry; Shortness of breath, SOB with excertion; No Wheezing, No Hemoptysis, No Pleuritic Pain, No Sputum, No Other Gastrointestinal: No Nausea, No Vomiting, No Abdominal Pain, No Diarrhea, No Constipation, No Melena, No Hematochezia, No Other Genitourinary: No Dysuria, No Frequency, No Incontinence, No Hematuria, No Retention, No Other Musculoskeletal: No other, No neck pain, No shoulder pain, No arm pain, No back pain, No hand pain, No leg pain, No foot pain Skin: Rash; No Lesions, No Jaundice, No Bruising, No Other Objective Vitals Vital Signs Date Time Temp Pulse Resp B/P (MAP) Pulse Ox O2 Delivery O2 Flow Rate FiO2 02/03/25 11:47 98.9 70 18 106/69 (81) 94 98.9 02/02/25 21:55 Nasal Cannula* 1 24 Intake/Output Intake and Output 02/03/25 07:00 Intake Total 800 ml Balance 800 ml Intake Oral 400 ml IV Total 400 ml # Voids 1 Medications Current Medications Medications Dose Ordered Sig/Markus Route Start Time Stop Time Status Last Admin Dose Admin Methylprednisolone Sodium Succinate 40 mg Q8HR IV 02/02/25 14:00 02/03/25 05:15 40 MG Diphenhydramine HCl 25 mg Q4HP PRN IV 02/02/25 14:00 02/03/25 09:48 25 MG Pantoprazole Sodium 40 mg DAILY IV 02/03/25 10:00 02/03/25 09:48 40 MG Sodium Chloride 1,000 ml @ 100 mls/hr Q10H IV 02/02/25 14:00 02/03/25 10:00 100 MLS/HR Ondansetron HCl 4 mg Q4HP PRN IV 02/02/25 14:00 Docusate Sodium 100 mg BIDPRN PRN PO 02/02/25 14:00 Morphine Sulfate 2 mg Q4HPRN PRN IV 02/02/25 14:00 Nitroglycerin 0.4 mg Q5MINP PRN SL 02/02/25 14:00 Atenolol 50 mg DAILY PO 02/03/25 10:00 02/03/25 09:49 50 MG Estradiol 1 mg DAILY PO 02/03/25 10:00 Nortriptyline HCl 50 mg DAILY PO 02/03/25 10:00 02/03/25 09:49 50 MG Laboratory Results Laboratory Tests 02/03/25 07:41 Chemistry Test 02/03/25 07:41 Albumin 4.2 g/dL (3.2-4.8) Calcium Level 9.5 mg/dL (8.7-10.4) Total Protein 6.5 g/dL (5.7-8.2) LFT Test 02/03/25 07:41 Alanine Aminotransferase (ALT) 38 U/L (7-40) Alkaline Phosphatase 99 U/L (46-116) Aspartate Amino Transferase (AST) 22 U/L (13-40) Total Bilirubin 0.2 mg/dL (0.2-1.0) Urinalysis Test 02/02/25 10:21 Urine Color Colorless (Yellow) Urine Clarity Clear (Clear) Urine pH 7.0 (5.0-9.0) Urine Specific [place] 1.005 (1.001-1.035) Urine Protein Negative (Negative) Urine Ketones Negative (Negative) Urine Blood Negative /uL (Negative) Urine Nitrite Negative (Negative) Urine Bilirubin Negative (Negative) Urine Urobilinogen Normal mg/dL (Negative) Urine Leukocyte Esterase Negative /uL (Negative) Urine RBC <1 /hpf (0 - 4) Urine Microscopic WBC 1 /HPF (0-5) Urine Squamous Epithelial Cells Few /hpf (<5) Urine Bacteria None seen /hpf (None Seen) Urine Glucose Normal mg/dL (Normal) Labs and/or images reviewed: Labs reviewed by me, Image(s) reviewed by me Assessment/Plan Assessment/Plan Acute allergic reaction likely to ivp dye: Benadryl Solu-Medrol Pepcid Acute leukocytosis likely acute phase reactant Acute elevation in crea magdalena Hypertension Seen at [facility] one week ago for head injury where she had the CT with the contrast Plan discussed with: Patient Date of Service: Feb 03, 2025 Billing Provider: GABRIELLA WEINSTEIN MD Common Visit Codes: [id number] INP/OBS CARE(HIGH) GABRIELLA WEINSTEIN MD Feb 03, 2025 12:54
[2025-02-03] MEDS: methylPREDNISolone SOD SUCC 40 MG/ML VL IV SCH (14:37)
[2025-02-03] MEDS: diphenhdrAMINE HCL 50 MG/1 ML VL IV SCH (17:36)
[2025-02-04] VITALS (8 sets, daily range): BP systolic 144–163; BP diastolic 62–80; PULSE 52–61; RESP 16–20; TEMP 96.7–97.6; O2SAT 91–93
--- NOTE | 2025-02-04 08:34 | DVHPN2 ---
Reviewed: Care Plan, H&P, Labs, Medications, Previous Orders, Radiology Changes from previous H/P or p: No Changes Eyes: No Pain, No Vision change, No Conjunctivae inflammation, No Eyelid inflammation, No Other, No Redness ENT: No Ear pain, No Ear discharge, No Nose pain, No Nose discharge, No Nose congestion, No Mouth pain, No Mouth swelling, No Throat pain, No Throat swelling, No Other Cardiovascular: No Chest Pain, No Palpitations, No Orthopnea, No Paroxysmal Noc. Dyspnea, No Edema, No Lt Headedness, No Other Respiratory: No Cough, No Dry; Shortness of breath, SOB with excertion; No Wheezing, No Hemoptysis, No Pleuritic Pain, No Sputum, No Other Gastrointestinal: No Nausea, No Vomiting, No Abdominal Pain, No Diarrhea, No Constipation, No Melena, No Hematochezia, No Other Genitourinary: No Dysuria, No Frequency, No Incontinence, No Hematuria, No Retention, No Other Musculoskeletal: No other, No neck pain, No shoulder pain, No arm pain, No back pain, No hand pain, No leg pain, No foot pain Skin: Rash; No Lesions, No Jaundice, No Bruising, No Other Objective Vitals Vital Signs Date Time Temp Pulse Resp B/P (MAP) Pulse Ox O2 Delivery O2 Flow Rate FiO2 02/04/25 05:00 96.7 61 20 148/80 (102) 93 96.7 02/03/25 20:00 Room Air* 0 21 Intake/Output Intake and Output 02/04/25 07:00 Intake Total 2440 ml Output Total 850 ml Balance 1590 ml Intake Oral 1540 ml IV Total 900 ml Output Urine Total 850 ml # Bowel Movements 1 Medications Current Medications Medications Dose Ordered Sig/Markus Route Start Time Stop Time Status Last Admin Dose Admin Pantoprazole Sodium 40 mg DAILY IV 02/03/25 10:00 02/03/25 09:48 40 MG Sodium Chloride 1,000 ml @ 100 mls/hr Q10H IV 02/02/25 14:00 02/04/25 06:18 100 MLS/HR Ondansetron HCl 4 mg Q4HP PRN IV 02/02/25 14:00 Docusate Sodium 100 mg BIDPRN PRN PO 02/02/25 14:00 Morphine Sulfate 2 mg Q4HPRN PRN IV 02/02/25 14:00 Nitroglycerin 0.4 mg Q5MINP PRN SL 02/02/25 14:00 Atenolol 50 mg DAILY PO 02/03/25 10:00 02/03/25 09:49 50 MG Estradiol 1 mg DAILY PO 02/03/25 10:00 Nortriptyline HCl 50 mg DAILY PO 02/03/25 10:00 02/03/25 09:49 50 MG Diphenhydramine HCl 25 mg Q6HR IV 02/03/25 18:00 02/04/25 05:20 25 MG Methylprednisolone Sodium Succinate 40 mg Q8HR IV 02/03/25 14:00 02/04/25 05:20 40 MG Laboratory Results Laboratory Tests 02/03/25 07:41 Urinalysis Test 02/02/25 10:21 Urine Color Colorless (Yellow) Urine Clarity Clear (Clear) Urine pH 7.0 (5.0-9.0) Urine Specific [place] 1.005 (1.001-1.035) Urine Protein Negative (Negative) Urine Ketones Negative (Negative) Urine Blood Negative /uL (Negative) Urine Nitrite Negative (Negative) Urine Bilirubin Negative (Negative) Urine Urobilinogen Normal mg/dL (Negative) Urine Leukocyte Esterase Negative /uL (Negative) Urine RBC <1 /hpf (0 - 4) Urine Microscopic WBC 1 /HPF (0-5) Urine Squamous Epithelial Cells Few /hpf (<5) Urine Bacteria None seen /hpf (None Seen) Urine Glucose Normal mg/dL (Normal) Labs and/or images reviewed: Labs reviewed by me, Image(s) reviewed by me Assessment/Plan Assessment/Plan Acute allergic reaction likely to ivp dye: Benadryl Solu-Medrol Pepcid patient feeling better, continue the meds Acute leukocytosis likely acute phase reactant Acute elevation in crea magdalena Hypertension Seen at [facility] one week ago for head injury where she had the CT with the contrast NAHOMI Colon at bedside Plan discussed with: Patient My Orders Orders - GABRIELLA WEINSTEIN MD Procedure Category Date Status Time Diphenhdramine PHA 02/03/25 In Process Injection (Benadryl 18:00 Methylprednisolone PHA 02/03/25 In Process Sod Succ (Solu Medrol 14:00 Date of Service: Feb 04, 2025 Billing Provider: GABRIELLA WEINSTEIN MD Common Visit Codes: [id number] INP/OBS CARE(HIGH) GABRIELLA WEINSTEIN MD Feb 04, 2025 08:34
[2025-02-05] VITALS (8 sets, daily range): BP systolic 142–191; BP diastolic 71–91; PULSE 48–82; RESP 12–20; TEMP 97.5–97.8; O2SAT 93–98
[2025-02-05] MEDS: ONDANSETRON HCL 4 MG/2 ML VIAL IV PRN (05:01)
[2025-02-05] MEDS: ACETAMINOPHEN 325 MG TAB PO ONE (05:52)
[2025-02-05] MEDS: MORPHINE SULFATE INJ 2 MG/ml SYRG IV PRN (08:56)
--- NOTE | 2025-02-05 10:13 | DVHPN2 ---
Reviewed: Care Plan, H&P, Labs, Medications, Previous Orders, Radiology Changes from previous H/P or p: No Changes Eyes: No Pain, No Vision change, No Conjunctivae inflammation, No Eyelid inflammation, No Other, No Redness ENT: No Ear pain, No Ear discharge, No Nose pain, No Nose discharge, No Nose congestion, No Mouth pain, No Mouth swelling, No Throat pain, No Throat swelling, No Other Cardiovascular: No Chest Pain, No Palpitations, No Orthopnea, No Paroxysmal Noc. Dyspnea, No Edema, No Lt Headedness, No Other Respiratory: No Cough, No Dry; Shortness of breath, SOB with excertion; No Wheezing, No Hemoptysis, No Pleuritic Pain, No Sputum, No Other Gastrointestinal: No Nausea, No Vomiting, No Abdominal Pain, No Diarrhea, No Constipation, No Melena, No Hematochezia, No Other Genitourinary: No Dysuria, No Frequency, No Incontinence, No Hematuria, No Retention, No Other Musculoskeletal: No other, No neck pain, No shoulder pain, No arm pain, No back pain, No hand pain, No leg pain, No foot pain Skin: Rash; No Lesions, No Jaundice, No Bruising, No Other Objective Vitals Vital Signs Date Time Temp Pulse Resp B/P (MAP) Pulse Ox O2 Delivery O2 Flow Rate FiO2 02/05/25 09:00 97.8 58 14 191/91 (124) 94 97.8 02/04/25 20:00 Room Air* 0 21 Intake/Output Intake and Output 02/05/25 07:00 Intake Total 1400 ml Balance 1400 ml Intake Oral 1400 ml # Voids 5 # Bowel Movements 2 Medications Current Medications Medications Dose Ordered Sig/Markus Route Start Time Stop Time Status Last Admin Dose Admin Pantoprazole Sodium 40 mg DAILY IV 02/03/25 10:00 02/04/25 11:09 40 MG Ondansetron HCl 4 mg Q4HP PRN IV 02/02/25 14:00 02/05/25 08:57 4 MG Docusate Sodium 100 mg BIDPRN PRN PO 02/02/25 14:00 Morphine Sulfate 2 mg Q4HPRN PRN IV 02/02/25 14:00 02/05/25 08:56 2 MG Nitroglycerin 0.4 mg Q5MINP PRN SL 02/02/25 14:00 Atenolol 50 mg DAILY PO 02/03/25 10:00 02/04/25 11:11 50 MG Estradiol 1 mg DAILY PO 02/03/25 10:00 Nortriptyline HCl 50 mg DAILY PO 02/03/25 10:00 02/04/25 11:10 50 MG Diphenhydramine HCl 25 mg Q6HR IV 02/03/25 18:00 02/04/25 23:51 25 MG Methylprednisolone Sodium Succinate 40 mg Q8HR IV 02/03/25 14:00 02/05/25 05:53 40 MG Laboratory Results Laboratory Tests 02/03/25 07:41 Urinalysis Test 02/02/25 10:21 Urine Color Colorless (Yellow) Urine Clarity Clear (Clear) Urine pH 7.0 (5.0-9.0) Urine Specific [place] 1.005 (1.001-1.035) Urine Protein Negative (Negative) Urine Ketones Negative (Negative) Urine Blood Negative /uL (Negative) Urine Nitrite Negative (Negative) Urine Bilirubin Negative (Negative) Urine Urobilinogen Normal mg/dL (Negative) Urine Leukocyte Esterase Negative /uL (Negative) Urine RBC <1 /hpf (0 - 4) Urine Microscopic WBC 1 /HPF (0-5) Urine Squamous Epithelial Cells Few /hpf (<5) Urine Bacteria None seen /hpf (None Seen) Urine Glucose Normal mg/dL (Normal) Labs and/or images reviewed: Labs reviewed by me, Image(s) reviewed by me Assessment/Plan Assessment/Plan Acute allergic reaction likely to ivp dye: Benadryl Solu-Medrol Pepcid patient feeling better, continue the meds Acute leukocytosis likely acute phase reactant Acute elevation in crea magdalena Hypertension Seen at [facility] one week ago for head injury where she had the CT with contrast which caused the allergic reaction with rash. RN Beatriz at bed side. Plan discussed with: Patient Date of Service: Feb 05, 2025 Billing Provider: GABRIELLA WEINSTEIN MD Common Visit Codes: [id number] INP/OBS CARE(HIGH) GABRIELLA WEINSTEIN MD Feb 05, 2025 10:13
[2025-02-05] MEDS ORDERED: HYDROcodone-ACET 5/325MG TAB PO PRN (12:45)
[2025-02-05] MEDS: HYDROcodone-ACET 5/325MG TAB PO ONE (21:41)
[2025-02-06 01:00] VITALS: BP 155/80; PULSE 60; RESP 17; TEMP 97.6; O2SAT 99
[2025-02-06 05:00] VITALS: BP 147/81; PULSE 64; RESP 17; TEMP 97.8; O2SAT 100
[2025-02-06] MEDS: ACETAMINOPHEN 325 MG TAB PO ONE (07:35)
[2025-02-06 08:00] VITALS: PULSE 50
[2025-02-06 09:08] VITALS: BP 139/74; PULSE 61; RESP 21; TEMP 98.2; O2SAT 90
[2025-02-06] MEDS ORDERED: PRED20TA2 PO (09:46)
[2025-02-06] MEDS ORDERED: DIPH25CA66 PO (09:46)
--- NOTE | 2025-02-06 09:55 | DVHDS2 ---
Discharge Summary Date of Admission Feb 02, 2025 at 13:55 Date of Discharge: Feb 06, 2025 Admitting Diagnosis Allergic rash after intravenous iodine dye Wounds: None Labs/Diagnostic Data: Laboratory Results Test 02/03/25 07:41 02/02/25 11:39 02/02/25 10:42 02/02/25 10:21 White Blood Count 15.4 10^3/uL (4.4-10.8) Red Blood Count 4.91 10^6/uL (4.0-5.20) Hemoglobin 14.6 g/dL (12.2-16.2) Hematocrit 43.0 % (36.0-46.0) Mean Corpuscular Volume 87.7 fL (80.0-100.0) Mean Corpuscular Hemoglobin 29.7 pg (28.0-32.0) Mean Corpuscular Hemoglobin Concent 33.9 g/dL (32.0-36.0) Red Cell Distribution Width 15.9 % (11.8-14.3) Platelet Count 266 10^3/uL (140-450) Mean Platelet Volume 9.0 fL (6.9-10.8) Neutrophils (%) (Auto) 88.6 % (37.0-80.0) Lymphocytes (%) (Auto) 8.6 % (10.0-50.0) Monocytes (%) (Auto) 2.6 % (0.0-12.0) Eosinophils (%) (Auto) 0.1 % (0.0-7.0) Basophils (%) (Auto) 0.1 % (0.0-2.0) Neutrophils # (Auto) 13.7 10 ^3/uL (1.6-8.6) Lymphocytes # (Auto) 1.3 10 ^3/uL (0.4-5.4) Monocytes # (Auto) 0.4 10 ^3/uL (0-1.3) Eosinophils # (Auto) 0 10 ^3/uL (0-0.8) Basophils # (Auto) 0 10 ^3/uL (0-0.2) Nucleated Red Blood Cells 0.0 % Sodium Level 142 mmol/L (136-145) Potassium Level 4.1 mmol/L (3.5-5.1) Chloride Level 107 mmol/L (98-107) Carbon Dioxide Level 26 mmol/L (20-31) Anion Gap 9 (5-15) Blood Urea Nitrogen 19 mg/dL (9-23) Creatinine 1.17 mg/dL (0.550-1.02) Glomerular Filtration Rate Calc 52 mL/min (>90) BUN/Creatinine Ratio 16.2 (10.0-20.0) Serum Glucose 148 mg/dL (74-106) Calcium Level 9.5 mg/dL (8.7-10.4) Total Bilirubin 0.2 mg/dL (0.2-1.0) Aspartate Amino Transferase (AST) 22 U/L (13-40) Alanine Aminotransferase (ALT) 38 U/L (7-40) Alkaline Phosphatase 99 U/L (46-116) Total Protein 6.5 g/dL (5.7-8.2) Albumin 4.2 g/dL (3.2-4.8) POC Glucose 86 mg/dl (70-106) B-Type Natriuretic Peptide 77.75 pg/mL (0-100) Urine Color Colorless (Yellow) Urine Clarity Clear (Clear) Urine pH 7.0 (5.0-9.0) Urine Specific [place] 1.005 (1.001-1.035) Urine Protein Negative (Negative) Urine Ketones Negative (Negative) Urine Blood Negative /uL (Negative) Urine Nitrite Negative (Negative) Urine Bilirubin Negative (Negative) Urine Urobilinogen Normal mg/dL (Negative) Urine Leukocyte Esterase Negative /uL (Negative) Urine RBC <1 /hpf (0 - 4) Urine Microscopic WBC 1 /HPF (0-5) Urine Squamous Epithelial Cells Few /hpf (<5) Urine Bacteria None seen /hpf (None Seen) Urine Glucose Normal mg/dL (Normal) Other Laboratory Tests 02/03/25 07:41 Brief Hx & Hospital Course: 64-year-old female with a history of hypertension had a head injury treated [facility] one week ago during which time he had CT with the iodine intravenous contrast. Patient came into the [facility] with a severe rash secondary to the allergy to the dye. Patient had severe rash all over the body mostly in the upper extremities and upper chest. Moderate bruises. Treated with the IV Solu-Medrol IV Benadryl and IV Pepcid she has moderately improved and is feeling better. Rash is still persisting to OH and degree. Being discharged home on Benadryl and prednisone tablets. she will follow up with the primary Dr in one week Consults/Reason for consult None Operations or Procedures None Condition at Discharge: Fair Final Diagnosis/Problems List Acute allergic reaction likely to ivp dye: Benadryl Solu-Medrol Pepcid patient feeling better, continue the meds Acute leukocytosis likely acute phase reactant Acute elevation in crea magdalena Hypertension Seen at [facility] one week ago for head injury where she had the CT with contrast which caused the allergic reaction with rash Discharge Disposition: Home Discharge Instruct/Medications Diet: Regular Activity: No Restrictions, As Tolerated Follow Up/Referral: Use medications as prescribed Follow up with your primary Dr Dr. Anton in one week You are severely allergic to the intravenous contrast iodine dye, avoid it in future Medications: Benadryl Prednisone Transmitted to pharmacy Scheduled Atenolol (Atenolol), 1 TAB PO DAILY, (Reported) Azithromycin (Zithromax), 1 PACK PO ONCE Citalopram Hydrobromide (Citalopram Hydrobromide), 10 MG PO DAILY, (Reported) Diphenhydramine Hcl (Benadryl Allergy), 25 MG PO QID Famotidine (Pepcid Tablet), 1 TAB PO TID Furosemide (Lasix), 40 MG PO DAILY, (Reported) Hydroxyzine Hcl (Hydroxyzine Hcl), 1 TAB PO TID Lisinopril (Lisinopril), 20 MG PO DAILY, (Reported) Methylprednisolone (Medrol Dosepak), 4 MG PO UD Prednisone (Prednisone), 20 MG PO DAILY Triamcinolone Acetonide (Triamcinolone Acetonide), 1 APPLIC TOP BID Zinc Sulfate (Zinc Sulfate), 220 MG PO DAILY Scheduled PRN Baclofen (Baclofen), 10 MG PO TID PRN Discontinued Medications Estradiol (Estradiol), 1 MG PO DAILY, (Reported) Nortriptyline Hcl (Pamelor Capsule), 2 CAP PO DAILY, (Reported) 35 (Time taken for discharge summary 35 mts) Discharge Statement: "Patient was advised to return to the ER or call 911 if any headaches, dizziness, shortness of breath, chest pain, abdominal pain, bleeding, fevers, or worsening of medical condition. Patient was counseled about treatment plan, medications, possible side effects, patientverbalized understanding. All questions were answered to the best of my ability. This discharge took greater then 30 minutes in planning, reviewing documentation, counseling the patient, and discussing with other team members." ASSESSMENT ASSESSMENT Hospital Course Uneventful Assessment Acute allergic reaction likely to ivp dye: Benadryl Solu-Medrol Pepcid patient feeling better, continue the meds Acute leukocytosis likely acute phase reactant Acute elevation in crea magdalena Hypertension Seen at [facility] one week ago for head injury where she had the CT with contrast which caused the allergic reaction with rash Date of Service: Feb 06, 2025 Billing Provider: GABRIELLA WEINSTEIN MD Common Visit Codes: 66161-YWN/OBS DISCH DAY >30min GABRIELLA WEINSTEIN MD Feb 06, 2025 09:55
[2025-02-06 11:21] VITALS: BP 139/74; PULSE 61
== END 2025-02-06 12:08 | disposition home or self-care (01) | DRG 916 ==
LOC: ER 09:27 → OVERFLOW 13:55 → TELE-CENTR 21:53
PROVIDERS: ADMIT Family Medicine; ATTEND Family Medicine
DX: T78.40XA Allergy, unspecified, initial encounter (principal); N17.9 Acute kidney failure, unspecified; I10 Essential (primary) hypertension; D72.829 Elevated white blood cell count, unspecified; M79.7 Fibromyalgia; X58.XXXA Exposure to other specified factors, initial encounter; Z88.1 Allergy status to other antibiotic agents; Z88.5 Allergy status to narcotic agent; Z88.0 Allergy status to penicillin; Z88.8 Allergy status to other drugs, medicaments and biological substances; Z90.710 Acquired absence of both cervix and uterus; Z90.49 Acquired absence of other specified parts of digestive tract
CPT/HCPCS: 36415; 71045; 80048; 80053; 81001; 82962; 83880; 85025; 99291; 99292; G0378; J0169; J2405; J2470